=== PATIENT | female | born 1985 | race Caucasian/White ===

== ENCOUNTER 2016-05-10 15:44 | Emergency (ER) | payer OTHER ==
[~2016-05-10] VITALS: Ht 165.1 cm; Wt 91.6 kg
[~2016-05-10 15:44] MED LIST: CETI10TA16 PO; LEVO75TA PO; MOME17SP NS; PHEN30CA2 PO
[2016-05-10 17:54] VITALS: BP 132/75
--- NOTE | 2016-05-10 18:09 | PHYS DOC ---
Past Medical History Past Medical History: Depression, Hypothyroid Additional Past Medical Histor: BC/IUD Past Surgical History: No Surgical History Alcohol Use: Occasionally Drug Use: None Adult General Chief Complaint Chief Complaint: NAUSEA/VOMITING/DIARRHA HPI HPI Patient is a 31 year old female who presents with N/V/D. Patient reports that since this morning she has been nauseous and vomiting. Also having diarrhea and minor aching in her low back. No fever, no abdominal pain. She estimates emesis x6-8 today and diarrhea x4. No blood in stool. Has not taken anything for symptoms prior to coming to ED. Review of Systems Review of Systems Constitutional: Denies fever or chills Eyes: Denies change in visual acuity or eye pain HENT: Denies nasal congestion or sore throat Respiratory: Denies cough or shortness of breath Cardiovascular: Denies chest pain GI: Nausea, vomiting, diarrhea. Denies abdominal pain, bloody stools : Denies dysuria or hematuria Musculoskeletal: Mild back ache Integument: Denies rash or skin lesions Neurologic: Denies headache, focal weakness or sensory changes Current Medications Current Medications Current Medications Medications (Trade) Dose Ordered Sig/Nahomi Start Time Stop Time Status Last Admin Dose Admin Famotidine (Pepcid) 20 mg 1X ONCE 05/10/16 18:30 05/10/16 18:31 DC 05/10/16 18:45 20 MG Ondansetron HCl (Zofran) 4 mg 1X ONCE 05/10/16 18:30 05/10/16 18:31 DC 05/10/16 18:44 4 MG Sodium Chloride (Iv Sodium Chloride 0.9% 1000ml Bag) 1,000 ml @ 1,000 mls/hr Q1H 05/10/16 18:30 05/10/16 19:29 05/10/16 18:45 1,000 MLS/HR Allergies Allergies Allergies Coded Allergies Type Severity Reaction Last Updated Verified No Known Drug Allergies 07/12/13 No Physical Exam Physical Exam Constitutional: Well developed, well nourished, no acute distress, non-toxic appearance HENT: Normocephalic, atraumatic, bilateral external ears normal Eyes: EOMI, conjunctiva normal, no discharge Neck: Normal range of motion, no stridor Cardiovascular: Heart rate normal, regular rhythm, no murmur Lungs & Thorax: Bilateral breath sounds clear to auscultation Abdomen: Bowel sounds normal, soft, non-distended, no TTP Skin: Warm, dry, no erythema, no rash Extremities: No obvious deformity, no edema. Back: No skin lesions, no point TTP Neurologic: Alert and oriented X 3, no gross deficits noted Current Patient Data Vital Signs Vital Signs Date Time Temp Pulse Resp B/P Pulse Ox O2 Delivery O2 Flow Rate FiO2 05/10/16 17:54 98.0 95 16 132/75 94 Room Air 98.0 Lab Values Laboratory Tests Test 05/10/16 17:30 05/10/16 17:50 Urine Collection Type Void Urine Color Yellow Urine Clarity Cloudy Urine pH 5.5 Urine Specific [place] >=1.030 Urine Protein Negativemg/dL (NEG-TRACE) Urine Glucose (UA) Negativemg/dL (NEG) Urine Ketones (Stick) Tracemg/dL (NEG) Urine Blood Trace (NEG) Urine Nitrite Negative (NEG) Urine Bilirubin Small (NEG) Urine Urobilinogen Dipstick 1.0mg/dL (0.2 mg/dL) Urine Leukocyte Esterase Small (NEG) Urine RBC Rare/HPF (0-2) Urine WBC 1-4/HPF (0-4) Urine Squamous Epithelial Cells Many/LPF Urine Bacteria Many/HPF (0-FEW) Urine Mucus Marked/LPF Urine Test Negative (NEG) White Blood Count 12.0x10^3/uL (4.0-11.0) H Red Blood Count 4.79x10^6/uL (3.50-5.40) Hemoglobin 14.2g/dL (12.0-15.5) Hematocrit 41.6% (36.0-47.0) Mean Corpuscular Volume 87fL (79-100) Mean Corpuscular Hemoglobin 30pg (25-35) Mean Corpuscular Hemoglobin Concent 34g/dL (31-37) Red Cell Distribution Width 14.4% (11.5-14.5) Platelet Count 227x10^3/uL (140-400) Neutrophils (%) (Auto) 90% (31-73) H Lymphocytes (%) (Auto) 5% (24-48) L Monocytes (%) (Auto) 4% (0-9) Eosinophils (%) (Auto) 1% (0-3) Basophils (%) (Auto) 1% (0-3) Neutrophils # (Auto) 10.8x10^3uL (1.8-7.7) H Lymphocytes # (Auto) 0.5x10^3/uL (1.0-4.8) L Monocytes # (Auto) 0.4x10^3/uL (0.0-1.1) Eosinophils # (Auto) 0.2x10^3/uL (0.0-0.7) Basophils # (Auto) 0.1x10^3/uL (0.0-0.2) Segmented Neutrophils % 90% (35-66) H Band Neutrophils % 3% (0-9) Lymphocytes % 2% (24-48) L Monocytes % 3% (0-10) Eosinophils % 1% (0-5) Basophils % 1% (0-3) Toxic Granulation Slight Toxic Vacuolation Slight Platelet Estimate Adequate (ADEQUATE) Sodium Level 141mmol/L (136-145) Potassium Level 4.0mmol/L (3.5-5.1) Chloride Level 104mmol/L (98-107) Carbon Dioxide Level 29mmol/L (21-32) Anion Gap 8 (6-14) Blood Urea Nitrogen 14mg/dL (7-20) Creatinine 0.8mg/dL (0.6-1.0) Estimated GFR (Cockcroft-Gault) 83.1 BUN/Creatinine Ratio 18 (6-20) Glucose Level 110mg/dL (70-99) H Calcium Level 9.1mg/dL (8.5-10.1) Total Bilirubin 0.7mg/dL (0.2-1.0) Aspartate Amino Transferase (AST) 15U/L (15-37) Alanine Aminotransferase (ALT) 22U/L (14-59) Alkaline Phosphatase 74U/L (46-116) Total Protein 7.9g/dL (6.4-8.2) Albumin 3.8g/dL (3.4-5.0) Albumin/Globulin Ratio 0.9 (1.0-1.7) L Lipase 91U/L (73-393) Laboratory Tests 05/10/16 17:50 Laboratory Tests 05/10/16 17:50 EKG EKG [] Radiology/Procedures Radiology/Procedures [] Course & Med Decision Making Course & Med Decision Making Pertinent Labs and Imaging studies reviewed. (See chart for details) Patient is 31 year old female who presents with N/V/D. Likely viral gastroenteritis. No concerning findings on physical exam. Will check labs, UA, urine preg screen. IV fluids, anti-emetic, pepcid ordered. Labs notable for mild leukocytosis, otherwise unremarkable. Discussed results with patient, who is feeling better at this time. Will plan discharge home with rx for zofran and loperamide. Patient given instructions for follow up and return precautions. Dragon Disclaimer Dragon Disclaimer This electronic medical record was generated, in whole or in part, using a voice recognition dictation system. Departure Departure Impression: Primary Impression: Gastroenteritis Disposition: HOME, SELF-CARE Condition: IMPROVED Referrals: ROBERT ROBBINS MD (PCP) Patient Instructions: Viral Gastroenteritis Additional Instructions: Thank you for allowing us to provide care today in the Emergency Department. Take the provided medication as directed. Schedule a follow up appointment with your primary care doctor. Return promptly to the Emergency Department if you develop any new or concerning symptoms. Scripts Loperamide HCl (Imodium A-D)2 Mg Capsule2 Mg PO after loose stool #10 no more than 16mg in 24 hours Prov:ANDREINA BROWN MD 05/10/16 Ondansetron (Zofran Odt)4 Mg Tab.rapdis1 Tab SL Q8HRS PRN NAUSEA #15 TAB Prov:ANDREINA BROWN MD 05/10/16 ANDREINA BROWN MD May 10, 2016 18:09
[2016-05-10 18:16] LABS: BASO # 0.1 x10^3/uL (0.0-0.2); BASO % 1 % (0-3); EOS % 1 % (0-3); HEMATOCRIT 41.6 % (36.0-47.0); HEMOGLOBIN 14.2 g/dL (12.0-15.5); LYMPH # 0.5 x10^3/uL (1.0-4.8); LYMPH % 5 % (24-48); MEAN CORPUSCULAR HEMOGLOBIN 30 pg (25-35); MEAN CORPUSCULAR HGB CONC 34 g/dL (31-37); MEAN CORPUSCULAR VOLUME 87 fL (79-100); MONO % 4 % (0-9); NEUT % 90 % (31-73); PLATELET COUNT 227 x10^3/uL (140-400); RED BLOOD COUNT 4.79 x10^6/uL (3.50-5.40); RED CELL DISTRIBUTION WIDTH 14.4 % (11.5-14.5)
[2016-05-10 18:20] LABS: CALCIUM 9.1 mg/dL (8.5-10.1); CREATININE 0.8 mg/dL (0.6-1.0); GFR 83.1
[2016-05-10 18:25] LABS: ALBUMIN 3.8 g/dL (3.4-5.0); ALBUMIN/GLOBULIN RATIO 0.9 (1.0-1.7); TOTAL BILIRUBIN 0.7 mg/dL (0.2-1.0); TOTAL PROTEIN 7.9 g/dL (6.4-8.2)
[2016-05-10 18:28] LABS: NEG OBC UR NEG; POS OBC UR POS
[2016-05-10] MEDS ORDERED: ONDANSETRON PF 4 MG/2 ML VIAL. IV ONE (18:30)
[2016-05-10] MEDS ORDERED: IV NORMAL SALINE 1000ML BAG 1,000 ML IV SCH (18:30)
[2016-05-10] MEDS ORDERED: FAMOTIDINE 20 MG/2 ML VIAL IVP ONE (18:30)
[2016-05-10 18:31] LABS: BILIRUBIN,URINE SMALL (NEG); GLUCOSE,URINE NEGATIVE (NEG); NITRITE,URINE NEGATIVE (NEG); PH,URINE 5.5; PROTEIN,URINE NEGATIVE (NEG-TRACE)
[2016-05-10 18:59] LABS: BACTERIA,URINE MANY /HPF (0-FEW); RBC,URINE RARE /HPF (0-2); SQUAMOUS EPITHELIAL CELL,UR MANY /LPF
[2016-05-10 19:04] LABS: % BASOS 1 % (0-3); % EOS 1 % (0-5)
[2016-05-10 19:05] LABS: PLT ESTIMATE ADEQUATE (ADEQUATE); TOXIC GRANULATION SLIGHT; TOXIC VACUOLATION SLIGHT
[2016-05-10] MEDS ORDERED: LOPE2CAP88 PO (19:15)
[2016-05-10] MEDS ORDERED: ONDA4TAB10 SL (19:15)
== END 2016-05-10 19:53 | disposition home or self-care (01) ==
LOC: ER 15:44
DX: K52.9 Noninfective gastroenteritis and colitis, unspecified (principal); F32.9 Major depressive disorder, single episode, unspecified; E03.9 Hypothyroidism, unspecified
CPT/HCPCS: 36415; 80053; 81001; 81025; 83690; 85007; 85027; 87086; 96361; 96374; 96375; 99285; J2405; J7030; S0028

== ENCOUNTER 2016-08-03 12:11 | Emergency (ER) | payer OTHER ==
[~2016-08-03 12:11] MED LIST changes: +LOPE2CAP88 PO; +ONDA4TAB10 SL
[2016-08-03 13:23] VITALS: BP 122/59
[2016-08-03] MEDS ORDERED: AMOX1TAB61 PO (14:27)
[2016-08-03] MEDS ORDERED: LORA1TAB47 PO (14:27)
[2016-08-03] MEDS ORDERED: FLUT9.9S NS (14:27)
--- NOTE | 2016-08-03 14:28 | PHYS DOC ---
Past Medical History Past Medical History: Depression, Hypothyroid, Other Additional Past Medical Histor: BC/IUD Past Surgical History: No Surgical History Alcohol Use: Occasionally Drug Use: None Adult General Chief Complaint Chief Complaint: HEADACHE HPI HPI Patient is a 31 year old female with no significant medical history who presents with nasal congestion for one and a half weeks. Patient's also complaining of a frontal headache and dizziness that began yesterday. Patient denies any fever. Review of Systems Review of Systems Constitutional: See history of present illness Eyes: Denies change in visual acuity, redness, or eye pain [] HENT: Nasal congestion Respiratory: Denies cough or shortness of breath [] Cardiovascular: No additional information not addressed in HPI [] GI: Denies abdominal pain, nausea, vomiting, bloody stools or diarrhea [] : Denies dysuria or hematuria [] Musculoskeletal: Denies back pain or joint pain [] Integument: Denies rash or skin lesions [] Neurologic: Frontal headache and dizziness Endocrine: Denies polyuria or polydipsia [] Allergies Allergies Allergies Coded Allergies Type Severity Reaction Last Updated Verified No Known Drug Allergies 07/12/13 No Physical Exam Physical Exam Constitutional: Well developed, well nourished, no acute distress, non-toxic appearance. [] HENT: Normocephalic, atraumatic, bilateral external ears normal, oropharynx moist, no oral exudates, Bilateral nasal turbinates are erythematous and boggy. Mild frontal sinus tenderness Eyes: PERRLA, EOMI, conjunctiva normal, no discharge. [] Neck: Normal range of motion, no tenderness, supple, no stridor. [] Cardiovascular:Heart rate regular rhythm, no murmur [] Lungs & Thorax: Bilateral breath sounds clear to auscultation [] Abdomen: Bowel sounds normal, soft, no tenderness, no masses, no pulsatile masses. [] Skin: Warm, dry, no erythema, no rash. [] Back: No tenderness, no CVA tenderness. [] Extremities: No tenderness, no cyanosis, no clubbing, ROM intact, no edema. [] Neurologic: Alert and oriented X 3, normal motor function, normal sensory function, no focal deficits noted. [] Psychologic: Affect normal, judgement normal, mood normal. [] Current Patient Data Vital Signs Vital Signs Date Time Temp Pulse Resp B/P Pulse Ox O2 Delivery O2 Flow Rate FiO2 5/1/17 13:23 98.2 65 18 96 Room Air 98.2 EKG EKG [] Radiology/Procedures Radiology/Procedures [] Course & Med Decision Making Course & Med Decision Making Pertinent Labs and Imaging studies reviewed. (See chart for details) Patient has acute sinusitis. Discharged with Augmentin, Flonase and claritin D follow-up with PCP in 1-2 weeks. Dragon Disclaimer Dragon Disclaimer This electronic medical record was generated, in whole or in part, using a voice recognition dictation system. Departure Departure Impression: Primary Impression: Acute sinusitis Disposition: HOME, SELF-CARE Condition: STABLE Referrals: BABS MENDOZA MD (PCP) Follow-up with your doctor in one week Patient Instructions: Sinusitis Additional Instructions: You were seen for sinus infection. Complete your antibiotics. Use the rest of the medications as ordered. Scripts Loratadine/Pseudoephedrine (Claritin-D 12 Hour Tablet)1 Each Tab.er.12h1 Tab PO BID #40 TAB Prov:ANIYA KINGSLEY APRN 08/03/16 Fluticasone Propionate (Flonase Allergy Relief)9.9 Ml [place].susp2 Sprays NS DAILY #1 BOTTLE Prov:ANIYA KINGSLEY APRN 08/03/16 Amoxicillin/Potassium Clav (Augmentin 875-125 Tablet)1 Each Tablet1 Tab PO BID # 20 TAB Prov:ANIYA KINGSLEY APRN 08/03/16 Problem Qualifiers Primary Impression: Acute sinusitis Sinusitis location: frontal Recurrence: non-recurrent Qualified Code: J01.10 - Acute frontal sinusitis, unspecified ANIYA KINGSLEY APRN August 03, 2016 14:28
== END 2016-08-03 14:35 | disposition home or self-care (01) ==
LOC: ER 12:11
DX: J01.90 Acute sinusitis, unspecified (principal); R42 Dizziness and giddiness; E03.9 Hypothyroidism, unspecified; F32.9 Major depressive disorder, single episode, unspecified
CPT/HCPCS: 99283

== ENCOUNTER 2016-08-05 17:47 | Emergency (ER) | payer OTHER ==
[~2016-08-05] VITALS: Ht 165.1 cm; Wt 93.0 kg
[~2016-08-05 17:47] MED LIST changes: +AMOX1TAB61 PO; +FLUT9.9S NS; +LORA1TAB47 PO
[2016-08-05] MEDS ORDERED: KETOROLAC TROMETHAMINE 30 MG/ML INJ. IV ONE (18:00)
[2016-08-05] MEDS ORDERED: ONDANSETRON PF 4 MG/2 ML VIAL. IV ONE (18:00)
[2016-08-05] MEDS ORDERED: IV NORMAL SALINE 1000ML BAG 500 ML IV ONE (18:00)
--- NOTE | 2016-08-05 18:08 | PHYS DOC ---
Past Medical History Past Medical History: Depression, Hypothyroid, Other Additional Past Medical Histor: BC/IUD Past Surgical History: No Surgical History Alcohol Use: Occasionally Drug Use: None, Marijuana (20 years ago) Adult General Chief Complaint Chief Complaint: NAUSEA/VOMITING/DIARRHA [facility] HPI Patient is a pleasant 31-year-old non female who presents with nausea and vomiting for the last 2-3 days. She describes nonbilious nonbloody emesis 3- 4 times a day with crampy bowel pain before the emesis. Nothing really makes the pain worse or better she's had no sick contacts but was ecstasy seen here in the ER for facial pain diagnosed with sinusitis and placed on amoxicillin 3 days ago. She denies any fevers the headache is not worse of life there is no changes characteristic to the [place] is no change in vision. Patient denies any direct trauma to focal neurologic deficits to include weakness numbness or tingling or problems with memory or vision. Patient says her facial pain and drainage has improved but she is worried about the nausea and vomiting because she has missed work. She denies any lightheaded or dizziness chest pain or other symptoms to complain of the stay. She denies any travel outside the country denies any recent sick contacts with similar symptoms. She does not work with poultry or reptiles does not consume raw foods. Review of Systems Review of Systems Constitutional: Denies fever or chills [] Eyes: Denies change in visual acuity, redness, or eye pain [] HENT: Planes of nasal congestion with facial tenderness and pain. Respiratory: Denies cough or shortness of breath [] Cardiovascular: No additional information not addressed in HPI [] GI: Please of crampy abdominal pain nausea vomiting without diarrhea or blood in her stools. : Denies dysuria or hematuria [] Musculoskeletal: Denies back pain or joint pain [] Integument: Denies rash or skin lesions [] Neurologic: Denies headache, focal weakness or sensory changes [] Endocrine: Denies polyuria or polydipsia [] Family History Family History Noncontributory Current Medications Current Medications Current Medications Medications (Trade) Dose Ordered Sig/Nahomi Start Time Stop Time Status Last Admin Dose Admin Ketorolac Tromethamine (Toradol) 30 mg 1X ONCE 08/05/16 18:00 08/05/16 18:03 DC 08/05/16 18:22 30 MG Ondansetron HCl (Zofran) 4 mg 1X ONCE 08/05/16 18:00 08/05/16 18:03 DC 08/05/16 18:20 4 MG Sodium Chloride (Iv Sodium Chloride 0.9% 1000ml Bag) 500 ml @ 500 mls/hr 1X ONCE 08/05/16 18:00 08/05/16 18:59 DC 08/05/16 18:23 500 MLS/HR Allergies Allergies Allergies Coded Allergies Type Severity Reaction Last Updated Verified No Known Drug Allergies 07/12/13 No Physical Exam Physical Exam Constitutional: Well developed, well nourished, no acute distress, non-toxic appearance. [] HENT: Normocephalic atraumatic ears externally and internally are normal TMs normal and clear there is no facial tenderness to palpation over the frontal maxillary or ethmoid sinuses patient has no mucopurulent discharge no facial swelling. Patient's oropharynx is mildly tacky and dry. Oropharynx is otherwise clear with no erythema [] Eyes: PERRLA, EOMI, conjunctiva normal, no discharge. [] Neck: Normal range of motion, no tenderness, supple, no stridor. [] Cardiovascular:Heart rate regular rhythm, no murmur [] Lungs & Thorax: Bilateral breath sounds clear to auscultation [] Abdomen: Abdomen soft nontender nondistended no guarding rebound or organomegaly patient's bowel sounds are hyperactive. Skin: Warm, dry, no erythema, no rash. [] Back: No tenderness, no CVA tenderness. [] Extremities: No tenderness, no cyanosis, no clubbing, ROM intact, no edema. [] Neurologic: Alert and oriented X 3, normal motor function, normal sensory function, no focal deficits noted. [] Psychologic: Affect normal, judgement normal, mood normal. [] Current Patient Data Vital Signs Vital Signs Date Time Temp Pulse Resp B/P Pulse Ox O2 Delivery O2 Flow Rate FiO2 08/05/16 18:10 97.7 77 18 134/78 98 Room Air 97.7 Lab Values Laboratory Tests Test 08/05/16 17:11 08/05/16 18:05 08/05/16 18:15 08/05/16 18:46 POC Urine HCG, Qualitative Hcg negative (Negative) Urine Collection Type Unknown Urine Color Yellow Urine Clarity Clear Urine pH 5.5 Urine Specific [place] 1.015 Urine Protein Negativemg/dL (NEG-TRACE) Urine Glucose (UA) Negativemg/dL (NEG) Urine Ketones (Stick) Negativemg/dL (NEG) Urine Blood Small (NEG) Urine Nitrite Negative (NEG) Urine Bilirubin Negative (NEG) Urine Urobilinogen Dipstick 0.2mg/dL (0.2 mg/dL) Urine Leukocyte Esterase Moderate (NEG) Urine RBC 0/HPF (0-2) Urine WBC 1-4/HPF (0-4) Urine Squamous Epithelial Cells Mod/LPF Urine Bacteria Few/HPF (0-FEW) Urine Mucus Slight/LPF White Blood Count 9.3x10^3/uL (4.0-11.0) Red Blood Count 4.77x10^6/uL (3.50-5.40) Hemoglobin 14.2g/dL (12.0-15.5) Hematocrit 42.1% (36.0-47.0) Mean Corpuscular Volume 88fL (79-100) Mean Corpuscular Hemoglobin 30pg (25-35) Mean Corpuscular Hemoglobin Concent 34g/dL (31-37) Red Cell Distribution Width 13.3% (11.5-14.5) Platelet Count 295x10^3/uL (140-400) Neutrophils (%) (Auto) 70% (31-73) Lymphocytes (%) (Auto) 22% (24-48) L Monocytes (%) (Auto) 4% (0-9) Eosinophils (%) (Auto) 3% (0-3) Basophils (%) (Auto) 1% (0-3) Neutrophils # (Auto) 6.5x10^3uL (1.8-7.7) Lymphocytes # (Auto) 2.0x10^3/uL (1.0-4.8) Monocytes # (Auto) 0.4x10^3/uL (0.0-1.1) Eosinophils # (Auto) 0.3x10^3/uL (0.0-0.7) Basophils # (Auto) 0.1x10^3/uL (0.0-0.2) Sodium Level 142mmol/L (136-145) Potassium Level 3.7mmol/L (3.5-5.1) Chloride Level 106mmol/L (98-107) Carbon Dioxide Level 25mmol/L (21-32) Anion Gap 11 (6-14) Blood Urea Nitrogen 14mg/dL (7-20) Creatinine 0.7mg/dL (0.6-1.0) Estimated GFR (Cockcroft-Gault) 97.0 BUN/Creatinine Ratio 20 (6-20) Glucose Level 92mg/dL (70-99) Calcium Level 9.1mg/dL (8.5-10.1) Magnesium Level Pending Total Bilirubin Pending Aspartate Amino Transferase (AST) Pending Alanine Aminotransferase (ALT) Pending Alkaline Phosphatase Pending Total Protein Pending Albumin Pending Albumin/Globulin Ratio Pending Laboratory Tests 08/05/16 18:15 Laboratory Tests 08/05/16 18:46 EKG EKG [] Radiology/Procedures Radiology/Procedures [] Course & Med Decision Making Course & Med Decision Making Pertinent Labs and Imaging studies reviewed. (See chart for details) [Patient presents with headache and facial pain consistent with her prior acute sinusitis. She is receiving treatment for that entity. She is currently on amoxicillin day 3 her patient is not worse of life and not sudden onset this no new characteristics to this. Her headache or headache pattern. She denies any high fevers denies any change in vision or other neurologic deficits. I do not believe she is suffering from cavernous venous thrombosis on acute meningitis. Doubt subarachnoid hemorrhage. Patient's nausea and vomiting of unclear etiology she will be tested for dehydration given her tachycardia mucous membranes she will be offered some fluid resuscitation and antiemetics and an evaluation for possible . She is not urinalysis is clear of any kind signs of infection. Patient is feeling much better with fluid hydration here in the emergency Department nausea is resolved with IV antiemetics. Her headache is also lessened considerably again or some life without a change in characteristics or focal neurologic deficits. Patient asking his a section more concerned about missing work. I'll provide her work as well as an antiemetic and hydration instructions. I would encourage her to follow-up with her primary care doctor for any continued symptoms. At this point I'm abdomen is soft doubt appendicitis or other inflammatory or bowel obstruction. Given precautions as well as discussion about possible causes of nausea vomiting. Dragon Disclaimer Dragon Disclaimer This electronic medical record was generated, in whole or in part, using a voice recognition dictation system. Departure Departure Impression: Primary Impression: Nausea and vomiting Additional Impression: Headache Disposition: 01 HOME, SELF-CARE Condition: IMPROVED Referrals: BABS MENDOZA MD (PCP) Patient Instructions: Abdominal Pain (Nonspecific), Dehydration, Adult, Nausea and Vomiting Scripts Naproxen 250 Mg [id number] Mg PO BID #10 TAB Prov:BROOK FROST MD 08/05/16 Dicyclomine Hcl (Bentyl)10 Mg Capsule1 Cap PO TID #10 CAP Ref 1 Prov:BROOK FROST MD 08/05/16 Ondansetron (Zofran Odt)4 Mg Tab.rapdis1 Tab SL Q8HRS #10 TAB Prov:BROOK FROST MD 08/05/16 Problem Qualifiers BROOK FROST MD August 05, 2016 18:08
[2016-08-05 18:14] LABS: BILIRUBIN,URINE NEGATIVE (NEG); GLUCOSE,URINE NEGATIVE (NEG); NITRITE,URINE NEGATIVE (NEG); PH,URINE 5.5; PROTEIN,URINE NEGATIVE (NEG-TRACE); UROBILINOGEN,URINE 0.2 mg/dL (0.2 mg/dL)
[2016-08-05 18:25] LABS: RBC,URINE 0 /HPF (0-2)
[2016-08-05 18:26] LABS: BACTERIA,URINE FEW /HPF (0-FEW); SQUAMOUS EPITHELIAL CELL,UR MOD /LPF
[2016-08-05 18:29] LABS: BASO # 0.1 x10^3/uL (0.0-0.2); BASO % 1 % (0-3); EOS % 3 % (0-3); HEMATOCRIT 42.1 % (36.0-47.0); HEMOGLOBIN 14.2 g/dL (12.0-15.5); LYMPH % 22 % (24-48); MEAN CORPUSCULAR HEMOGLOBIN 30 pg (25-35); MEAN CORPUSCULAR HGB CONC 34 g/dL (31-37); MEAN CORPUSCULAR VOLUME 88 fL (79-100); MONO % 4 % (0-9); NEUT % 70 % (31-73); PLATELET COUNT 295 x10^3/uL (140-400); RED BLOOD COUNT 4.77 x10^6/uL (3.50-5.40); RED CELL DISTRIBUTION WIDTH 13.3 % (11.5-14.5); WHITE BLOOD COUNT 9.3 x10^3/uL (4.0-11.0)
[2016-08-05 19:00] VITALS: BP 124/69
[2016-08-05 19:03] LABS: CALCIUM 9.1 mg/dL (8.5-10.1); CREATININE 0.7 mg/dL (0.6-1.0); POTASSIUM 3.7 mmol/L (3.5-5.1)
[2016-08-05 19:09] LABS: ALBUMIN 3.4 g/dL (3.4-5.0); ALBUMIN/GLOBULIN RATIO 0.8 (1.0-1.7); MAGNESIUM 1.7 mg/dL (1.8-2.4); TOTAL BILIRUBIN 0.2 mg/dL (0.2-1.0); TOTAL PROTEIN 7.6 g/dL (6.4-8.2)
[2016-08-05] MEDS ORDERED: ONDA4TAB10 SL (19:13)
[2016-08-05] MEDS ORDERED: NAPR250T2 PO (19:13)
[2016-08-05] MEDS ORDERED: DICY10CA53 PO (19:13)
== END 2016-08-05 19:25 | disposition home or self-care (01) ==
LOC: ER 17:47
DX: R11.2 Nausea with vomiting, unspecified (principal); R51 Headache; E03.9 Hypothyroidism, unspecified; F32.9 Major depressive disorder, single episode, unspecified; F12.10 Cannabis abuse, uncomplicated
CPT/HCPCS: 36415; 80053; 81001; 81025; 83735; 85027; 87086; 96361; 96374; 96375; 99285; J1885; J2405; J7030

== ENCOUNTER 2016-11-03 11:45 | Emergency (ER) | payer OTHER ==
[~2016-11-03] VITALS: Ht 165.1 cm; Wt 100.7 kg
[~2016-11-03 11:45] MED LIST changes: +DICY10CA53 PO; +NAPR250T2 PO
[2016-11-03 12:10] VITALS: BP 121/66
[2016-11-03] MEDS ORDERED: AMOX1TAB61 PO (12:41)
--- NOTE | 2016-11-03 12:42 | PHYS DOC ---
Past Medical History Past Medical History: Hypothyroid Additional Past Medical Histor: BC/IUD Past Surgical History: No Surgical History Alcohol Use: None Drug Use: None Adult General Chief Complaint Chief Complaint: HEADACHE HPI HPI Patient is a 31 year old female presents to the emergency department stating that she is having frontal sinus pressure. She states that she has tried Aleve yesterday with no relief. She denies any nasal drainage or discharge. She denies any fever, chills. She states her last stress echo was approximately 2 weeks ago. Review of Systems Review of Systems Constitutional: Denies fever or chills [] Eyes: Denies change in visual acuity, redness, or eye pain [] HENT: Denies nasal congestion or sore throat. Complaint of frontal sinus pressure. Respiratory: Denies cough or shortness of breath [] Cardiovascular: No additional information not addressed in HPI [] GI: Denies abdominal pain, nausea, vomiting, bloody stools or diarrhea [] : Denies dysuria or hematuria [] Musculoskeletal: Denies back pain or joint pain [] Integument: Denies rash or skin lesions [] Neurologic: Denies headache, focal weakness or sensory changes [] Endocrine: Denies polyuria or polydipsia [] Allergies Allergies Allergies Coded Allergies Type Severity Reaction Last Updated Verified No Known Drug Allergies 07/12/13 No Physical Exam Physical Exam Constitutional: Well developed, well nourished, no acute distress, non-toxic appearance. [] HENT: Normocephalic, atraumatic, bilateral external ears normal, oropharynx moist, no oral exudates, nose normal. Bilateral tympanic membranes appear to be normal. Patient with frontal sinus tenderness no maxillary sinus tenderness noted no nasal drainage no erythematous in bilateral naris. Eyes: PERRLA, EOMI, conjunctiva normal, no discharge. [] Neck: Normal range of motion, no tenderness, supple, no stridor. [] Cardiovascular:Heart rate regular rhythm, no murmur [] Lungs & Thorax: Bilateral breath sounds clear to auscultation [] Skin: Warm, dry, no erythema, no rash. [] Back: No tenderness Extremities: No tenderness, no cyanosis, no clubbing, ROM intact, no edema. [] Neurologic: Alert and oriented X 3, normal motor function, normal sensory function, no focal deficits noted. [] Psychologic: Affect normal, judgement normal, mood normal. [] Current Patient Data Vital Signs Vital Signs Date Time Temp Pulse Resp B/P (MAP) Pulse Ox O2 Delivery O2 Flow Rate FiO2 11/03/16 12:10 98.4 76 22 99 Room Air 98.4 EKG EKG [] Radiology/Procedures Radiology/Procedures [] Course & Med Decision Making Course & Med Decision Making Pertinent Labs and Imaging studies reviewed. (See chart for details) Patient will be provided with a prescription of Augmentin with recommendations for Sudafed, Mucinex DM [id number]. Patient be encouraged take Tylenol or ibuprofen for fever chills or generalized body aches and discomfort. Patient will be discharged home in stable condition signs and symptoms to return back to emergency department as been provided. [] Dragon Disclaimer Dragon Disclaimer This electronic medical record was generated, in whole or in part, using a voice recognition dictation system. Departure Departure Impression: Primary Impression: Acute sinusitis Disposition: 01 HOME, SELF-CARE Condition: STABLE Referrals: BABS MENDOZA MD (PCP) Patient Instructions: Sinusitis, [id number] Additional Instructions: Activity as tolerated. Medication as prescribed. Sudafed may also help with the sinus pressure. Mucinex will help relieve the pressure by allowing the sinuses to drain. Drink plenty of fluids such as water and cranberry juice. Tylenol or ibuprofen for pain and discomfort Follow-up the primary care physician in the next week. Return back to emergency prior signs symptoms of become worse. Scripts Amoxicillin/Potassium Clav (AUGMENTIN 875-125 TABLET) 1 Each Tablet 1 TAB PO BID, #20 TAB Prov: CONCHITA GALEANA APRN 11/03/16 CONCHITA GALEANA APRN Nov 03, 2016 12:42
== END 2016-11-03 12:58 | disposition home or self-care (01) ==
LOC: ER 11:45
DX: J01.90 Acute sinusitis, unspecified (principal); E03.9 Hypothyroidism, unspecified
CPT/HCPCS: 99283

== ENCOUNTER 2016-12-19 14:10 | Emergency (ER) | payer OTHER ==
[~2016-12-19 14:10] MED LIST changes: -NAPR250T2 PO; +NAPR250T6 PO
[2016-12-19 14:30] VITALS: BP 90/59
--- NOTE | 2016-12-19 14:36 | PHYS DOC ---
Past Medical History Past Medical History: Hypothyroid Additional Past Medical Histor: BC/IUD Past Surgical History: No Surgical History Alcohol Use: None Drug Use: None Adult General Chief Complaint Chief Complaint: NAUSEA/VOMITING/DIARRHA HPI HPI Patient is a 31 year old female who presents with nasal congestion, sinus drainage and a headache. Patient states that she has terrible allergies which is causing her to have sinus drainage that she swallows and then causes nausea and vomiting. She states that she threw up twice once in the morning 4 days ago once in the morning 3 days ago. She has not had any more nausea or vomiting since that incident but states that she does still have sinus pressure across her forehead. She does take Claritin and has a prescription for Flonase but has not been using it. Review of Systems Review of Systems Constitutional: Denies fever or chills [] Eyes: Denies change in visual acuity, redness, or eye pain [] HENT: See history of present illness Respiratory: Denies cough or shortness of breath [] Cardiovascular: No additional information not addressed in HPI [] GI: see history of present illness Neurologic: Denies headache, focal weakness or sensory changes [] Endocrine: Denies polyuria or polydipsia [] Allergies Allergies Allergies Coded Allergies Type Severity Reaction Last Updated Verified No Known Drug Allergies 07/12/13 No Physical Exam Physical Exam Constitutional: Well developed, well nourished, no acute distress, non-toxic appearance. [] HENT: Normocephalic, atraumatic, bilateral external ears normal, oropharynx moist, sinus drainage noted to back throat, nares are erythematous and swollen bilaterally Eyes: PERRLA, EOMI, conjunctiva normal, no discharge. [] Neck: Normal range of motion, no tenderness, supple, no stridor. [] Cardiovascular:Heart rate regular rhythm, no murmur [] Lungs & Thorax: Bilateral breath sounds clear to auscultation [] Skin: Warm, dry, no erythema, no rash. [] Neurologic: Alert and oriented X 3, normal motor function, normal sensory function, no focal deficits noted. [] Psychologic: Affect normal, judgement normal, mood normal. [] Current Patient Data Vital Signs Vital Signs Date Time Temp Pulse Resp B/P (MAP) Pulse Ox O2 Delivery O2 Flow Rate FiO2 12/19/16 14:30 98.0 71 18 99 Room Air 98.0 EKG EKG [] Radiology/Procedures Radiology/Procedures [] Course & Med Decision Making Course & Med Decision Making Pertinent Labs and Imaging studies reviewed. (See chart for details) []1. Allergic rhinitis The patient is to use sinus rinses at least twice a day. She is to use her Flonase daily and take her allergy medications as prescribed. The patient is to keep her follow-up appointment for Wednesday with her primary care provider. Dragon Disclaimer Dragon Disclaimer This electronic medical record was generated, in whole or in part, using a voice recognition dictation system. Departure Departure Referrals: BABS MENDOZA MD (PCP) HANNA MENDIOLA APRN Dec 19, 2016 14:36
== END 2016-12-19 15:19 | disposition home or self-care (01) ==
LOC: ER 14:10
DX: J30.9 Allergic rhinitis, unspecified (principal); E03.9 Hypothyroidism, unspecified
CPT/HCPCS: 99281